=== PATIENT | female | born 1990 | race Asian ===

== ENCOUNTER 2018-10-06 18:48 | Emergency (ER) | payer OTHER, SELFPAY ==
[2018-10-06 18:51] VITALS: BP 107/67; PULSE 76; RESP 16; TEMP 36.8; O2SAT 100; BMI 25.4
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
== END 2018-10-06 19:30 | disposition home or self-care (01) ==
PROVIDERS: Emergency Provider Emergency Medicine
DX: M54.9 Dorsalgia, unspecified (principal); V43.52XA Car driver injured in collision with other type car in traffic accident, initial encounter; Z3A.22 22 weeks gestation of pregnancy
CPT/HCPCS: 99283